=== PATIENT | male | born 1970 | race Caucasian/White ===

== ENCOUNTER 2016-09-15 12:52 | Emergency (ER) | payer OTHER ==
[~2016-09-15] VITALS: Ht 172.7 cm; Wt 88.5 kg
[2016-09-15 13:04] VITALS: Ht 172.7 cm; Wt 88.5 kg
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
[2016-09-15] MEDS ORDERED: OXYCODONE/ACETAMINOPHEN (5/325) TAB PO ONE (15:30)
[2016-09-15] MEDS ORDERED: HYDROCHLOROTHIAZIDE 25 MG TAB PO ONE (15:30)
[2016-09-15] MEDS ORDERED: CARISOPRODOL 350 MG TAB PO ONE (15:30)
[2016-09-15] MEDS ORDERED: LISINOPRIL 20 MG TAB PO ONE (15:30)
[2016-09-15] MEDS ORDERED: HYD25 PO (16:05)
[2016-09-15] MEDS ORDERED: CARI350T PO (16:06)
[2016-09-15] MEDS ORDERED: LISI20TA11 PO (16:06)
[2016-09-15 16:43] VITALS: BP 150/97; PULSE 58; RESP 18; TEMP 97.9
== END 2016-09-15 16:46 | disposition home or self-care (01) ==
LOC: E/R 12:52
DX: I10 Essential (primary) hypertension (principal)
CPT/HCPCS: Z7502; Z7610; 99283